=== PATIENT | male | born 1990 | race Caucasian/White ===

== ENCOUNTER 2016-07-14 10:52 | Emergency (ER) | payer OTHER ==
--- NOTE | 2016-07-14 12:12 | EDPHY ---
H & P Stated Complaint: Infected L 2nd finger from splinter 6 weeks ago. HPI/ROS: CHIEF COMPLAINT: Left finger infection, splinter under fingernail HISTORY OF PRESENT ILLNESS: Patient complains of pain of the left index finger for the past 4-5 weeks to splinter. He obtain a splinter while working as a [employer]. It is on the radial aspect of the left index finger. He noted sudden onset of pain. Over the past few weeks, he has had intermittent infections with this. He says that he will palpated press the finger and sometimes expressed purulence. It comes and goes in terms of the level of swelling erythema. Never fully resolved. He has no numbness or tingling of the finger. No difficulty flexing or extending the finger. No spread to the hand. His tetanus is up-to-date within the past 2 years. He has had no fever or chills. No nausea or vomiting. No other associated complaints or modifying factors. PRIOR ORTHO INJURIES: None ESTABLISHED ORTHOPEDIST: None REVIEW OF SYSTEMS: Ten systems reviewed and are negative unless otherwise noted in the HPI EXAMINATION General Appearance: Alert, no distress Cardiovascular: Pulses normal throughout. Symmetric radial pulses. Brisk cap refill Neurological: A&O, sensory symmetric, strength symmetric. Two point sensation intact in the fingers. Skin: Warm and dry, no rash. Mild erythema on the radial aspect of the left index finger over the distal phalanx. Mild purulence draining from the site. There is no erythema about the PIP joint. No erythema or thrombophlebitis of the left hand or upper extremity. Extremities: Mild tenderness to palpation of the left index finger over the distal phalanx. No tenderness elsewhere. Range of motion is fully intact. Good strength of the interossei. Psychiatric: Mood and affect normal MDM: 11:59 a.m. Splinter in the left index finger cuticle for the past 4-5 weeks. He has not developed a paronychia. He is neurovascular intact. There is purulence coming from the cuticle bed. I have applied a digital block. I will proceed with paronychia incision and drainage. 1:00 p.m. Paronychia was incised and drained. There was a scant amount of purulence noted. Neurovascular intact post procedure. Wound was dressed. We discussed wound care, antibiotics. He has a follow-up here in 2 days for wound recheck if unable to be seen by primary care physician. Return sooner for signs of infection as discussed. he is comfortable this plan and discharged home stable condition. PROCEDURE: Digital Block Indication: Left index finger paronychia Consent: Verbal Location: Left index finger Anesthesia: Lidocaine 1% plain, 0.25% Marcaine plain, 5mL Description: Base of the left index finger was prepped with chlorhexidine. 5 mL of the above solution was infused split between the ulnar radial aspect of the finger. Tolerated well. Good anesthesia. Brisk cap refill postprocedure. Complications: None PROCEDURE: Incision and Drainage Consent: Verbal Location: Left index finger paronychia Length: Subcentimeter Complexity: Single Anesthesia: Digital block Procedure description: Expressed: Less than 5 mL Wound care: Routine as discussed Follow-up: 2 days for wound recheck ED Precautions: Worsening pain. Erythema, edema, cyanosis, pallor, paresthesia or anesthesia. SUPERVISION: This patient was independently evaluated without direct examination by the attending physician. Case was discussed with attending physician. 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 - Social History Smoking Status: Never smoked Constitutional: Initial Vital Signs Temperature (C) 98.2 F 07/14/16 11:24 Heart Rate 78 07/14/16 11:24 Respiratory Rate 16 07/14/16 11:24 Blood Pressure 131/74 H 07/14/16 11:24 O2 Sat (%) 97 07/14/16 11:24 O2 Delivery Mode Room Air Allergies/Adverse Reactions: No Known Allergies Allergy (Unverified 07/14/16 11:26) Home Medications: Medication Instructions Recorded Amoxicillin/Clavulanate Pot 875 mg PO BID #20 tab 07/14/16 [Augmentin 875 MG TAB (*)] Hydrocodone/APAP 5/325 [[place] 1 - 2 tab PO Q4H PRN #10 tab 07/14/16 5/325 (*)] Departure - Departure Disposition: Home, Routine, Self-Care Clinical Impression: Paronychia of left index finger Condition: Good Instructions: Paronychia (ED) Additional Instructions: Wound care as discussed. Follow up with primary care physician. Return here for signs of infection any worsening pain. Return here for any difficulty flexing or extending the left index finger. Referrals: Nydia Corado MD [Medical Doctor] - As per Instructions Prescriptions: Amoxicillin/Clavulanate Pot [Augmentin 875 MG TAB (*)] 875 mg PO BID #20 tab Hydrocodone/APAP 5/325 [[place] 5/325 (*)] 1 - 2 tab PO Q4H PRN #10 tab PRN Reason: Pain, Moderate
[2016-07-14 13:24] VITALS: BP 128/67; PULSE 81; RESP 18; TEMP 97.7; O2SAT 96
== END 2016-07-14 13:25 | disposition home or self-care (01) ==
PROC: 0H9GXZZ Drainage of Left Hand Skin, External Approach (ICD-10-PCS; principal; 2016-07-14)
DX: L03.012 Cellulitis of left finger (principal)

== ENCOUNTER 2016-11-11 08:28 | Emergency (ER) | payer SELFPAY ==
[2016-11-11 08:33] VITALS: RESP 18; TEMP 97.7
[2016-11-11] MEDS ORDERED: NS 1,000 ML IV ONE (08:55)
[2016-11-11] MEDS ORDERED: ONDANSETRON 4 MG/2 ML VIAL IVP ONE (08:55)
[2016-11-11 09:05] LABS: % IMMATURE GRANULYOCYTES 0.6 % (0.0-1.1); ABSOLUTE IMMATURE GRANULOCYTES 0.03 10^3/uL (0.00-0.10); ADD DIFF? NO; ADD MORPH? NO; ADD SCAN? NO; ATYPICAL LYMPHOCYTE FLAG 80 (0-99); FRAGMENT RBC FLAG 0 (0-99); HEMATOCRIT 44.2 % (40.0-51.0); HEMOGLOBIN 15.1 g/dL (13.7-17.5); LEFT SHIFT FLG 0 (0-99); LIPEMIA HEMOLYSIS FLAG 90 (0-99); MEAN CELL HEMOGLOBIN 31.4 pg (27.9-34.1); MEAN CELL HEMOGLOBIN CONCENTR. 34.2 g/dL (32.4-36.7); MEAN CELL VOLUME 91.9 fL (81.5-99.8); MEAN PLATELET VOLUME 9.9 fL (8.7-11.7); PLATELET CLUMPS FLAG 10 (0-99); PLATELET COUNT 204 10^3/uL (150-400); RED BLOOD CELL COUNT 4.81 10^6/uL (4.40-6.38); RED CELL DISTRIBUTION WIDTH 12.5 % (11.5-15.2)
--- NOTE | 2016-11-11 09:15 | EDPHY ---
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 This occurred after he ate elk. His partner did not eat this food. She is asymptomatic. His diarrhea has stopped. He complains of continued nausea and continued abdominal pain epigastrium left upper and left lower quadrants. No right lower quadrant pain. No testicular pain. No urinary abnormality. No abdominal or testicular trauma. PRIMARY CARE PROVIDER: No local primary care provider REVIEW OF SYSTEMS: A ten point review of systems was performed and is negative with the exception of the items mentioned in the HPI PAST MEDICAL & SURGICAL HISTORY: History of non alcoholic pancreatitis with multiple admissions at [facility] SOCIAL HISTORY: no alcohol nonsmoker FAMILY HISTORY: No pertinent family history PHYSICAL EXAM (Prior to examination, patient consented to physical exam, hands were washed and my usual and customary physical exam procedures followed) 1) GENERAL: Well-developed, well-nourished, alert and oriented. Appears uncomfortable guarding abdomen. 2) HEAD: Normocephalic, atraumatic 3) HEENT: Pupils equal, round, reactive to light bilaterally. Sclera anicteric. Nasopharynx, oropharynx, clear, no lesions. dry mucous membrane 4) NECK: Full range of motion, no meningeal signs. 5) LUNGS: Clear auscultation bilaterally, no wheezes, no rhonchi, no retractions. 6) HEART: Regular rate and rhythm, no murmur, no heave, no gallop. 7) ABDOMEN: Guarding abdomen tender to palpation epigastrium, left upper quadrant, left lower quadrant. No McBurney's point pain. Negative peritoneal sign. Negative Bean sign., 8) MUSCULOSKELETAL: Moving all extremities, no focal areas of tenderness, no obvious trauma. No peripheral edema or discoloration. 9) BACK: No CVA tenderness. 10) SKIN: No rash, no petechiae. 11) Psychiatric: Patient is oriented X 3, there is no agitation. DIFFERENTIAL DIAGNOSIS: My differential diagnosis includes, but is not limited to, acute appendicitis, acute cholecystitis, bowel obstruction, acute pancreatitis,, gastritis The patient understands that this diagnosis is provisional and can never be 100% accurate. This is a partial list of diagnoses considered. These considerations are based on history, physical exam, past history and reassessment. 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 - Social History Smoking Status: Never smoked Constitutional: Initial Vital Signs Temperature (C) 36.5 C 11/11/16 08:30 Heart Rate 79 11/11/16 08:30 Respiratory Rate 18 11/11/16 08:30 Blood Pressure 101/77 11/11/16 08:30 O2 Sat (%) 97 11/11/16 08:30 O2 Delivery Mode Room Air Allergies/Adverse Reactions: No Known Allergies Allergy (Verified 11/11/16 08:29) Home Medications: Medication Instructions Recorded Ondansetron Odt [Zofran Odt] 4 mg PO Q4PRN PRN #10 tab 11/11/16 Medical Decision Making ED Course/Re-evaluation: 10:03 a.m.: Re-evaluation, he is asymptomatic at this time. I reviewed his laboratory studies showing normal lipase. Doubt pancreatitis. I re-examined his abdomen at this time , he has no McBurney's point pain, no left lower quadrant pain. I think that acute surgical abdominal pathology is less likely in this patient, doubt acute appendicitis, doubt diverticulitis. I think the patient can be discharged at this time however I did recommend 12 hour follow- up. Usual customary abdominal precautions instructions provided. - Data Points Laboratory Results: Laboratory Results 11/11/16 08:45 11/11/16 08:45 11/11/16 11/11/16 08:45 08:45 WBC 5.45 10^3/uL 10^3/uL (3.80-9.50) RBC 4.81 10^6/uL 10^6/uL (4.40-6.38) Hgb 15.1 g/dL g/dL (13.7-17.5) Hct 44.2 % % (40.0-51.0) MCV 91.9 fL fL (81.5-99.8) MCH 31.4 pg pg (27.9-34.1) MCHC 34.2 g/dL g/dL (32.4-36.7) RDW 12.5 % % (11.5-15.2) Plt Count 204 10^3/uL 10^3/uL (150-400) MPV 9.9 fL fL (8.7-11.7) Neut % (Auto) 60.1 % % (39.3-74.2) Lymph % (Auto) 31.2 % % (15.0-45.0) [place] % (Auto) 6.4 % % (4.5-13.0) Eos % (Auto) 1.3 % % (0.6-7.6) Baso % (Auto) 0.4 % % (0.3-1.7) Nucleat RBC Rel Count 0.0 % % (0.0-0.2) Absolute Neuts (auto) 3.28 10^3/uL 10^3/uL (1.70-6.50) Absolute Lymphs (auto) 1.70 10^3/uL 10^3/uL (1.00-3.00) Absolute Monos (auto) 0.35 10^3/uL 10^3/uL (0.30-0.80) Absolute Eos (auto) 0.07 10^3/uL 10^3/uL (0.03-0.40) Absolute Basos (auto) 0.02 10^3/uL 10^3/uL (0.02-0.10) Absolute Nucleated RBC 0.00 10^3/uL 10^3/uL (0-0.01) Immature Gran % 0.6 % % (0.0-1.1) Immature Gran # 0.03 10^3/uL 10^3/uL (0.00-0.10) Sodium 141 mEq/L mEq/L (134-144) Potassium 4.8 mEq/L mEq/L (3.5-5.2) Chloride 106 mEq/L mEq/L (97-110) Carbon Dioxide 21 mEq/l L mEq/l (22-31) Anion Gap 14 mEq/L mEq/L (8-16) BUN 23 mg/dL mg/dL (7-23) Creatinine 0.8 mg/dL mg/dL (0.7-1.3) Estimated GFR > 60 Glucose 94 mg/dL mg/dL (70-100) Calcium 9.7 mg/dL mg/dL (8.5-10.4) Total Bilirubin 0.6 mg/dL mg/dL (0.1-1.4) Conjugated Bilirubin 0.3 mg/dL mg/dL (0.0-0.5) Unconjugated Bilirubin 0.3 mg/dL mg/dL (0.0-1.1) AST 30 IU/L IU/L (17-59) ALT 33 IU/L IU/L (21-72) Alkaline Phosphatase 70 IU/L IU/L (38-126) Total Protein 8.1 g/dL g/dL (6.3-8.2) Albumin 4.7 g/dL g/dL (3.5-5.0) Lipase 28 IU/L IU/L (23-300) Medications Given: Discontinued Medications Sodium Chloride (Ns) 1,000 mls @ 0 mls/hr IV ONCE ONE PRN Reason: Wide Open Stop: 11/11/16 08:56 Last Admin: 11/11/16 09:02 Dose: 1,000 mls Ketorolac Tromethamine (Toradol) 30 mg IVP EDNOW ONE Stop: 11/11/16 09:34 Last Admin: 11/11/16 09:46 Dose: 30 mg Morphine Sulfate (Morphine) 4 mg IVP EDNOW ONE Stop: 11/11/16 09:34 Last Admin: 11/11/16 09:45 Dose: 4 mg Ondansetron HCl (Zofran) 4 mg IVP EDNOW ONE Stop: 11/11/16 08:56 Last Admin: 11/11/16 09:02 Dose: 4 mg Departure - Departure Disposition: Home, Routine, Self-Care Clinical Impression: Diarrhea Qualifiers: Diarrhea type: unspecified type Qualified Code(s): R19.7 - Diarrhea, unspecified Condition: Good Instructions: Acute Diarrhea (ED) Additional Instructions: Seek immediate medical attention if you develop new or worsening symptoms, if you develop fevers, chills, inability to tolerate oral intake or any other symptoms that concerns you. Referrals: Return, to the ER in 12 hours for recheck [Other] - 11/11/16 10:00 pm Prescriptions: Ondansetron Odt [Zofran Odt] 4 mg PO Q4PRN PRN #10 tab PRN Reason: Nausea
[2016-11-11 09:31] LABS: ALANINE AMINOTRANSFERASE 33 IU/L (21-72); ALBUMIN 4.7 g/dL (3.5-5.0); ALKALINE PHOSPHATASE 70 IU/L (38-126); ANION GAP 14 mEq/L (8-16); ASPARTATE AMINOTRANSFERASE 30 IU/L (17-59); BILIRUBIN,TOTAL 0.6 mg/dL (0.1-1.4); BILIRUBIN-CONJUGATED 0.3 mg/dL (0.0-0.5); BILIRUBIN-UNCONJUGATED 0.3 mg/dL (0.0-1.1); CALCIUM 9.7 mg/dL (8.5-10.4); CARBON DIOXIDE 21 mEq/l (22-31); CHLORIDE 106 mEq/L (97-110); CREATININE 0.8 mg/dL (0.7-1.3); GLOMERULAR FILTRATION RATE > 60; GLUCOSE 94 mg/dL (70-100); POTASSIUM 4.8 mEq/L (3.5-5.2); SODIUM 141 mEq/L (134-144); TOTAL PROTEIN 8.1 g/dL (6.3-8.2)
[2016-11-11] MEDS ORDERED: KETOROLAC 30 MG/1 ML SDV IVP ONE (09:33)
[2016-11-11 09:59] VITALS: BP 117/75; PULSE 62
[2016-11-11 10:23] VITALS: O2SAT 96
== END 2016-11-11 10:22 | disposition home or self-care (01) ==
DX: R19.7 Diarrhea, unspecified (principal)
CPT/HCPCS: 96374; J1885; J2405

== ENCOUNTER 2016-12-18 16:04 | Emergency (ER) | payer OTHER, MEDICAID ==
--- NOTE | 2016-12-18 16:37 | EDPHY ---
H & P Stated Complaint: Splinter under nail Time Seen by Provider: 12/18/16 16:30 HPI/ROS: Chief complaint: Splinter under right middle fingernail History of present illness: This is a 26-year-old male who presents to the emergency department for a splinter under his right middle fingernail. Patient works as a [employer]. Splinter came off a piece of wood and got under the nail. Minimal discomfort. He has attempted to remove it without success. Denies associated signs or symptoms including no abnormal coolness or paresthesias. He is moving the finger well. His tetanus is up-to-date. 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 - Social History Smoking Status: Never smoked - Physical Exam Exam: General: Alert, nontoxic Skin: There is a splinter down the length of the right middle fingernail Musculoskeletal: Patient is flexing extending his right middle finger in the DIP, PIP and MCP joint well Vascular: Capillary refill brisk in the right finger Neurologic: Sensation intact right middle finger Constitutional: Initial Vital Signs Temperature (C) 37.1 C 12/18/16 16:10 Heart Rate 68 12/18/16 16:10 Respiratory Rate 16 12/18/16 16:10 Blood Pressure 107/56 L 12/18/16 16:10 O2 Sat (%) 98 12/18/16 16:10 O2 Delivery Mode Room Air Allergies/Adverse Reactions: No Known Allergies Allergy (Verified 12/18/16 16:18) Home Medications: Medication Instructions Recorded NK [No Known Home Meds] 12/18/16 Medical Decision Making Procedures: Procedure: Digital block Indication: Removal of foreign body from under fingernail Patient's proximal finger was cleaned with alcohol. 1.5 cc of Marcaine without epinephrine was instilled on the lateral and medial side of the finger. Patient tolerated the procedure well. No complications noted. Using splinter forceps splinter was grasped and removed. Inspection of the site does not reveal retained foreign body ED Course/Re-evaluation: Patient seen under the supervision of my primary supervising physician Dr. Pily Ramires. Patient presents for a splinter to his finger. His tetanus is up- to-date. Splinter was removed. I do not believe prophylactic antibiotics are warranted. Wound care is discussed. Return precautions are given. Patient voiced understanding and agreement with plan. Departure - Departure Disposition: Home, Routine, Self-Care Clinical Impression: Splinter in skin Condition: Good Instructions: Acute Wounds (ED) Additional Instructions: Follow-up with worker's compensation for recheck Keep wound clean with soap and water and apply antibacterial ointment multiple times daily If symptoms worsen or new symptoms develop return to the emergency room for recheck Referrals: NONE *PRIMARY CARE P,. [Primary Care Provider] - As per Instructions [facility],. [Clinic] - As per Instructions
[2016-12-18 16:59] VITALS: BP 110/67; PULSE 71; RESP 18; TEMP 97.9; O2SAT 96
== END 2016-12-18 17:03 | disposition home or self-care (01) ==
PROC: 3E0T3BZ Introduction of Anesthetic Agent into Peripheral Nerves and Plexi, Percutaneous Approach (ICD-10-PCS; principal; 2016-12-18)
DX: S60.452A Superficial foreign body of right middle finger, initial encounter (principal); W45.8XXA Other foreign body or object entering through skin, initial encounter; Y92.69 Other specified industrial and construction area as the place of occurrence of the external cause; Y99.0 Civilian activity done for income or pay; Y93.89 Activity, other specified